=== PATIENT | female | born 1945 | race Caucasian/White ===

== ENCOUNTER 2017-12-14 14:22 | Observation (INO) | payer MEDICARE ==
[2017-12-14] MEDS ORDERED: NALOXONE 0.4 MG/ML 1 ML VIAL IV PRN ×2 (14:55→16:42)
[2017-12-14] MEDS ORDERED: ONDANSETRON 4 MG/2 ML VIAL IVP PRN (14:55)
--- NOTE | 2017-12-14 14:55 | ED ---
Dizziness HPI - General Stated Complaint: dizziness/weakness Time Seen by Provider: 12/14/17 14:26 - History of Present Illness Initial Comments: Patient presents with dizziness. She states nothing in particular makes her symptoms better or worse. She denies any fever, chills, chest pain. Normally she is able to walk. She has no difficulties walking. She has no weakness in her tremor days. However today she had the gradual onset of dizziness. She feels vertiginous. She feels lightheaded. She thinks she could pass out. She denies any shortness of breath. She has no palpitations. She has no pain or swelling in the arms or legs. Her symptoms are worse when she is up, attending to walk, to the point that she is unable to walk anymore. Review of Systems ROS Statement: Those systems with pertinent positive or pertinent negative responses have been documented in the HPI. ROS Other: All systems not noted in ROS Statement are negative. General Exam General appearance: alert, in no apparent distress Head exam: Present: atraumatic, normocephalic, normal inspection Eye exam: Present: normal appearance, PERRL, EOMI. Absent: scleral icterus, conjunctival injection, periorbital swelling ENT exam: Present: normal exam, mucous membranes moist Neck exam: Present: normal inspection. Absent: tenderness, meningismus, lymphadenopathy Respiratory exam: Present: normal lung sounds bilaterally. Absent: respiratory distress, wheezes, rales, rhonchi, stridor Cardiovascular Exam: Present: regular rate, normal rhythm, normal heart sounds. Absent: systolic murmur, diastolic murmur, rubs, gallop, clicks GI/Abdominal exam: Present: soft, normal bowel sounds. Absent: distended, tenderness, guarding, rebound, rigid Extremities exam: Present: normal inspection, full ROM, normal capillary refill. Absent: tenderness, pedal edema, joint swelling, calf tenderness Back exam: Present: normal inspection Neurological exam: Present: alert, oriented X3, CN II-XII intact, abnormal gait Psychiatric exam: Present: normal affect, normal mood Skin exam: Present: warm, dry, intact, normal color. Absent: rash Medical Decision Making - Medical Decision Making Patient presents with dizziness. She can't walk. CT of the head is negative. Laboratory studies are normal. I will place a consultation to neurology. She will be admitted to the hospital. Disposition Clinical Impression: Dizziness Disposition: ADMITTED IP TO THIS HOSP Condition: Fair Is patient prescribed a controlled substance at discharge?: No Referrals: Dina Adam DO [Primary Care Provider] - 1-2 days Time of Disposition: 14:55
[2017-12-14] MEDS ORDERED: ALPRAZolam 0.25 MG TAB PO PRN (16:40)
[2017-12-14] MEDS: SODIUM CHLORIDE 0.9% 1,000 ML IV SCH (17:06)
[2017-12-14] MEDS: ACETAMINOPHEN TAB 325 MG TAB PO PRN (17:07)
--- NOTE | 2017-12-14 17:11 | P.HPIM ---
History of Present Illness H&P Date: 12/14/17 Chief Complaint: Dizziness Patient is a 72-year-old female with known history of hypothyroidism, hypertension and anxiety who presented with very severe and significant dizziness and dysarthria this morning. Patient states she was out of her normal health yesterday and when she went to bed last night. When she woke up this morning was extremely dizzy and weak, stated she felt like the room was spinning forcing her to lay back down in bed and close her eyes which only minimally helped with the symptoms. Family found her laying on the ground on the carpet due to the dizziness, states that when she tried to talk to them she was having trouble getting words out. EMS was called and brought the patient to an outside ED; at some point the patient was given Decadron which been reports afterwards she "perked up". The patient was transferred to our ED for further evaluation which was unremarkable including a CT had which showed no acute pathology. Symptoms have since resolved. Patient is being admitted to the observation unit for further workup. Review of Systems CONSTITUTIONAL: No weight loss, fever, chills. Positive for weakness HEENT: Eyes: No visual loss, positive for rooms spinning. Ears, Nose, Throat : No hearing loss, sneezing, congestion, runny nose or sore throat. SKIN: No rash or itching. CARDIOVASCULAR: No chest pain, chest pressure or chest discomfort. No palpitations or edema. RESPIRATORY: No shortness of breath, cough or sputum. GASTROINTESTINAL: No anorexia, vomiting or diarrhea. No abdominal pain or blood. Positive for nausea GENITOURINARY: No burning on urination. No change in frequency. No change in stream. NEUROLOGICAL: + headache, dizziness. No syncope, paralysis, ataxia, numbness or tingling in the extremities. No change in bowel or bladder control. MUSCULOSKELETAL: No muscle, back pain, joint pain or stiffness. HEMATOLOGIC: No anemia, bleeding or bruising. PSYCHIATRIC: No history of depression. ENDOCRINOLOGIC: No reports of sweating, cold or heat intolerance. No polyuria or polydipsia. ALLERGIES: No history of asthma, hives, eczema or rhinitis. Past Medical History Past Medical History: GERD/Reflux, Hypertension, Thyroid Disorder History of Any Multi-Drug Resistant Organisms: None Reported Past Surgical History: Cholecystectomy, Orthopedic Surgery (Right ankle with hardware implantation and [facility] over 20 years ago), Tonsillectomy Additional Past Surgical History / Comment(s): D&C Past Psychological History: Anxiety, Depression Smoking Status: Never smoker Past Alcohol Use History: None Reported Past Drug Use History: None Reported - Past Family History Father Family Medical History: Coronary Artery Disease (CAD), Hypertension Medications and Allergies Home Medications Medication Instructions Recorded Confirmed Type ALPRAZolam [Xanax] 0.25 mg PO BID PRN 12/14/17 12/14/17 History Aspirin 81 mg PO DAILY 12/14/17 12/14/17 History Levothyroxine Sodium [Synthroid] 50 mcg PO DAILY 12/14/17 12/14/17 History Multivit with Calcium,Iron,Min 1 tab PO DAILY 12/14/17 12/14/17 History [Women's Multivitamin] Ranitidine HCl [Zantac] 150 mg PO BID 12/14/17 12/14/17 History Ultimate Preeti Probiotic 1 tab PO DAILY 12/14/17 12/14/17 History Vitamin B Complex 1 cap PO DAILY 12/14/17 12/14/17 History amLODIPine [Norvasc] 5 mg PO DAILY 12/14/17 12/14/17 History Allergies Allergy/AdvReac Type Severity Reaction Status Date / Time codeine AdvReac Nausea & Verified 12/14/17 15:27 Vomiting Physical Exam Vitals: Vital Signs Temp Pulse Resp BP Pulse Ox 12/14/17 16:36 98.8 F 77 16 136/66 98 12/14/17 15:04 97.7 F 85 20 150/70 98 Intake and Output 12/14/17 12/14/17 12/14/17 06:59 14:59 22:59 Other: Weight 76.204 kg General: A/O x 3, NAD, Lying in bed comfortably HEENT: EOMI, MMM, atraumatic normocephalic Neck: Supple. No JVD, trachea midline CVS: Regular rate and rhythm. + S1/S2, no murmurs/gallops/rubs Respiratory: Bilateral air entry noted. Clear to auscultation, no wheeze, no rhonchi Abdomen: Soft, nontender, nondistended. Bowel sounds audible Extremities: No lower extremity edema. No clubbing or cyanosis Skin: No rash or skin change noted Psych: Without hallucinations, abnormal affect, or abnormal behaviors during the examination Results Results: Outside ED lab work reviewed CT Scan - head: other (Outside CAT scan reviewed, no acute pathology) Assessment and Plan (1) TIA (transient ischemic attack) Current Visit: Yes Status: Acute Code(s): G45.9 - TRANSIENT CEREBRAL ISCHEMIC ATTACK, UNSPECIFIED SNOMED Code(s): 998813918 (2) Dizziness Current Visit: Yes Status: Acute Code(s): R42 - DIZZINESS AND GIDDINESS SNOMED Code(s): 628907704 Plan: Dizziness, lightheadedness, dysarthria concerning for TIA. Patient to be admitted to the observation unit on telemetry monitoring. Neuro checks ordered. Neurology was consulted while patient was still in the emergency department. Considering MRI for further imaging however patient does have some hardware implantation from right ankle repair done over 20 years ago. To discussed with neurology.
[2017-12-14] MEDS ORDERED: MECLIZINE 25 MG TAB PO STA (19:08)
[2017-12-14] MEDS: FAMOTIDINE 20 MG TAB PO SCH (20:37)
[2017-12-14] MEDS ORDERED: NON-FORMULARY DRUG (Ranitidine Hcl [Zantac] 150 MG) PO SCH (21:00)
--- NOTE | 2017-12-14 23:21 | CONS ---
CONSULTATION DATE OF CONSULTATION: 12/14/2017. CHIEF COMPLAINT: Dizziness. HISTORY OF PRESENT ILLNESS: The patient is a pleasant 52-year-old female, who is being evaluated by the Neurology Service per the request of Dr. Ray for dizziness. The patient states that she woke up this morning and noticed significant dizziness, which she described as a spinning sensation. She called her daughter and stated that she was not feeling well. When her daughter came over, she found her on the floor and was having difficulty moving due to the dizziness. The patient reports having tinnitus for several years and hearing loss as well. She is scheduled to see an ear nose and throat doctor next week. EMS was called and she was transferred to [facility] where a CT scan of the brain was done, which showed no acute findings. She was transferred to [facility] for further workup and management. At the time of my evaluation, she is still having vertigo, which is worsened when she tried to go to the bathroom earlier today. She is also complaining of a headache which she describes as a pressure pain that is mostly in the frontal and occipital region. According to the family, when she arrived to the emergency room at [facility], the patient was having difficulty speaking and she was having significant weakness, that the patient felt was generalized. The patient states that she knew what she wanted to say but the words were not coming out. She does take aspirin 81 mg daily at home. At the time of my evaluation, she rates her headache at 7/10 in intensity. She did receive Tylenol with minimal improvement. She currently denies any weakness or numbness. PAST MEDICAL HISTORY: Hypertension, gastroesophageal reflux disease, anxiety disorder, hypothyroidism. SOCIAL HISTORY: She denies any tobacco alcohol or drug use. FAMILY HISTORY: Noncontributory. HOME MEDICATIONS: Reviewed in the chart. ALLERGIES: Codeine. REVIEW OF SYSTEMS: CONSTITUTIONAL: Positive for fatigue. EYES: Negative. ENT: As mentioned above. CARDIOVASCULAR: Negative. RESPIRATORY: Negative. NEUROLOGICAL: As mentioned above. GASTROINTESTINAL: Positive for occasional heartburn. GENITOURINARY: Negative. DERMATOLOGICAL: Negative. ENDOCRINE: Positive for hypothyroidism. PSYCHIATRIC: Positive for anxiety disorder. MUSCULOSKELETAL: Positive for occasional joint pain. PHYSICAL EXAM: Vital signs show a temperature of 98.8, pulse 77, respirations 16, blood pressure 136/66. GENERAL APPEARANCE: The patient is a well-developed, elderly female, who appears to be in no acute distress. HEENT: Normocephalic, atraumatic. No facial asymmetry is seen. Tenderness to palpation is felt along bilateral greater occipital nerve region, right more than left. NECK: Supple with no masses felt. CARDIOVASCULAR: Regular rate and rhythm. ABDOMEN: Nontender, nondistended. EXTREMITIES: No edema or clubbing. NEUROLOGICAL EXAM: The patient is awake, alert, and oriented x3. Speech and language are normal. Strength is full in all four extremities. Sensory exam was normal to light touch in all four extremities. No tremors or seizure-like activity is seen. No facial asymmetry is seen on cranial nerve testing. IMPRESSION: 1. Dizziness/vertigo. 2. Generalized weakness, resolved. 3. Headache. 4. Occipital neuritis. 5. Tinnitus. 6. Possible transient ischemic attack. RECOMMENDATIONS: The patient continues to have vertigo. She does have chronic tinnitus and hearing loss. As mentioned above. Her current headache and transient episode of expressive aphasia which occurred at [facility] is concerning for a transient ischemic attack. For this reason, I will order an MRI of the brain along with an MRA of the brain and neck. I will also order a fasting lipid panel, EEG, and serum homocystine level. I will switch her aspirin to Plavix 75 mg daily. As for her headache, she does have evidence of occipital neuritis on my examination. I will give her a single dose of IV Solu-Medrol 500 mg. I will also give her another dose of Antivert 25 mg for her vertigo. Continue neuro checks. I will continue to follow with you. Further recommendations to follow. Thank you for allowing me to participate in the care of your patient. If you have any questions, please feel free to contact me. MMODL / IJN: [id number] /
[2017-12-15] MEDS: LEVOTHYROXINE 50 MCG TAB PO SCH (05:17)
[2017-12-15] MEDS: ACETAMINOPHEN TAB 325 MG TAB PO PRN ×2 (05:24→15:35)
[2017-12-15] MEDS: SODIUM CHLORIDE 0.9% 1,000 ML IV SCH (08:10)
[2017-12-15 08:51] LABS: Albumin 4.1 g/dL (3.5-5.0); Calcium 9.5 mg/dL (8.4-10.2); Potassium 4.6 mmol/L (3.5-5.1); Total Bilirubin 0.5 mg/dL (0.2-1.3); Total Protein 6.4 g/dL (6.3-8.2)
[2017-12-15] MEDS ORDERED: ASPIRIN 81 MG PO SCH (09:00)
[2017-12-15] MEDS: FAMOTIDINE 20 MG TAB PO SCH ×2 (09:07→21:02)
[2017-12-15] MEDS: amLODIPine 5 MG TAB PO SCH (09:07)
[2017-12-15] MEDS: ENOXAPARIN 40 MG/0.4 ML SYRINGE SQ SCH (09:07)
[2017-12-15] MEDS: CLOPIDOGREL 75 MG TAB PO SCH (09:07)
--- NOTE | 2017-12-15 09:27 | MR ---
EXAMINATION TYPE: MR brain wo con DATE OF EXAM: 12/15/2017 COMPARISON: NONE HISTORY: 72-year-old female Dizziness, headache, rule out CVA TECHNIQUE: Multiplanar, multisequence images of the brain and brainstem were acquired before without IV contrast. Diffusion weighted imaging is performed. FINDINGS: No evidence for acute infarction, hemorrhage, mass, mass effect, midline shift, herniation, effacemen t of basal cisterns, or extra-axial fluid collection. The ventricles and sulci are age-appropriate. Major intracranial flow voids are intact. T2/FLAIR weighted sequences show numerous foci of bright signal in the subcortical and deep white mat ter of both cerebral hemispheres with moderate overall burden. Some patchy signal changes are also no trey in the bilateral paramedian anna. Midline structures demonstrate normal morphology. The craniocervical junction is normal. The visualized sinuses are clear and the globes are intact. IMPRESSION: No acute intracranial abnormality seen. T2 bright white matter foci in both cerebral hemispheres and anna with moderate overall burden. This is nonspecific but most likely relates to changes of chronic small vessel ischemic disease.
--- NOTE | 2017-12-15 09:35 | MR ---
EXAMINATION TYPE: MR angio head/neck wo con DATE OF EXAM: 12/15/2017 COMPARISON: NONE HISTORY: 72-year-old female Dizziness, headache TECHNIQUE: High resolution 3-D time of flight images focusing on the [place] of [place] were performed without contrast.. 2-D and 3-D postprocessing imaging is performed. Additional 2-D and 3-D time-of-f light imaging of the carotid vasculature of the neck with 3-D reconstructions generated on a [employer] workstation. FINDINGS: Head: Tiny 2 mm conical protrusion at the origin of the right posterior communicating artery and tiny 1 mm similar conical protrusion on the left. Otherwise, no aneurysmal change seen. The anterior and hair assistant ior circulations are patent without significant stenosis or arterial occlusion. NECK: The proximal left vertebral artery is tortuous. Both vertebral arteries are codominant and appear pat ent throughout their course. The right common and internal carotid arteries are widely patent. The left common carotid artery is patent. There is some eccentric atherosclerotic change at the left carotid bulb causing a mild, estimated at less than 20% focal narrowing. IMPRESSION: 1. Head: Tiny 2 mm and 1 mm infundibula at the origin of the right and left posterior communicating a rteries, respectively. No significant stenosis, arterial occlusion, or otherwise any aneurysmal harris e seen. 2. Neck: Suggestion of some eccentric atherosclerotic change at the left carotid bulb causing a mild, less than 20% stenosis of the proximal left ICA. Otherwise, the carotid and vertebral vasculature of the neck are widely patent.
--- NOTE | 2017-12-15 12:25 | P.PN ---
Subjective Progress Note Date: 12/15/17 Principal diagnosis: Dizziness Patient feeling better today last dizziness. The weakness is also better her speech is much improved back to normal Objective - Vital Signs Vital signs: Vital Signs Temp 97.7 F 12/15/17 06:39 Pulse 72 12/15/17 08:00 Resp 16 12/15/17 08:00 BP 120/64 12/15/17 06:39 Pulse Ox 94 L 12/15/17 06:39 Intake & Output 12/14/17 12/15/17 12/15/17 18:59 06:59 18:59 Weight 76.204 kg Other: Voiding Method Toilet Toilet Toilet Bedside Commode Bedside Commode # Voids 1 2 - Exam gen:alert and oriented lungs:clear to auscultation heart:s1s2 abdomen:soft and depressible,non tender ext:no edema - Labs CBC & Chem 7: 12/15/17 07:30 Labs: Abnormal Lab Results - Last 24 Hours (Table) 12/15/17 Range/Units 07:30 BUN 21 H (7-17) mg/dL Glucose 189 H (74-99) mg/dL Cholesterol 214 H (<200) mg/dL LDL Cholesterol, Calc 133 H (0-99) mg/dL HDL Cholesterol 70 H (40-60) mg/dL Assessment and Plan (1) Dizziness Narrative/Plan: MRI negative EEG ordered Current Visit: Yes Status: Acute Code(s): R42 - DIZZINESS AND GIDDINESS SNOMED Code(s): 537775004 (2) Hypertension Narrative/Plan: Controlled Continue Norvasc Current Visit: Yes Status: Acute Code(s): I10 - ESSENTIAL (PRIMARY) HYPERTENSION SNOMED Code(s): 36454123 (3) Hypothyroid Narrative/Plan: Continue Synthroid Current Visit: Yes Status: Acute Code(s): E03.9 - HYPOTHYROIDISM, UNSPECIFIED SNOMED Code(s): 50794043 Plan: Await neurology input
--- NOTE | 2017-12-15 17:55 | EEG ---
ELECTROENCEPHALOGRAM REPORT DATE OF SERVICE: 12/15/2017. REASON FOR TESTING: Dizziness. DESCRIPTION OF THE PROCEDURE: This EEG was performed using a 21 channel digital electroencephalograph, following international 10-20 system. DESCRIPTION OF THE RECORDING: From the beginning of the tracing, and with patient's eyes closed, the background rhythm was mostly consisting of 9 Hz alpha frequency in the posterior occipital leads. No obvious asymmetry is seen. Photic stimulation was performed with a minimal driving response seen. No pathological waves were elicited. Hyperventilation was not performed. The patient remains awake throughout the tracing. Occasional movement artifacts are seen. No epileptiform discharges were seen. Her EKG lead showed a regular rate and rhythm. INTERPRETATION: This awake EEG can be considered within normal limits. There is no asymmetry seen. No epileptiform discharges were noticed. The absence of epileptiform discharges does not rule out the diagnosis of epilepsy, therefore clinical correlation is recommended. MMMALIKA / WILMAR: [id number] /
--- NOTE | 2017-12-15 20:35 | P.PN ---
Subjective Progress Note Date: 12/15/17 Principal diagnosis: TIA Neurology is following on a 52-year-old female for dizziness. Patient noted significant dizziness which she described as a spinning sensation. Patient called her daughter and stated she was not feeling well. Patient was found on floor having difficulty moving due to dizziness. Patient reported having tinnitus for several years and hearing loss as well. Patient is to follow up with ear nose and throat provider next week. EMS was called and patient was transported to [facility] and a CT of the brain was done which noted no acute findings. Patient was then transferred to [facility] for further workup and neurological evaluation. Patient expressed difficulty speaking during the occurrence with word finding difficulty and generalized weakness. Patient is noted to be on 81 mg aspirin at home daily. Patient did receive Tylenol with minimal improvement. Patient was changed to Plavix 75 mg daily by supervising physician/neurologist. Patient was given IV Solu-Medrol 500 mg. She was also given Antivert 25 mg for her vertigo. Lipid panel was ordered. EEG was taken and was normal. MRI/MRA head and neck noted minimal atherosclerotic changes. CT brain noted chronic small vessel ischemic changes. Patient was alert and oriented 3, resting in bed in no acute distress. Objective - Vital Signs Vital signs: Vital Signs Temp 97.0 F L 12/15/17 15:00 Pulse 80 12/15/17 16:00 Resp 18 12/15/17 16:00 BP 124/64 12/15/17 15:00 Pulse Ox 97 12/15/17 15:00 Intake & Output 12/15/17 12/15/17 12/16/17 06:59 18:59 06:59 Intake Total 460 Balance 460 Intake: Oral 460 Other: Voiding Method Toilet Toilet Bedside Commode Bedside Commode # Voids 2 3 - Exam General appearance: Alert & oriented x3, no apparent distress. Head: Atraumatic, normocephalic, normal inspection Eyes: Well appearance, PERRLA, EOMI. Absent scleral icterus, conjunctival injection, nystagmus, periorbital swelling. Ear, nose and throat: Normal exam, mucous membranes moist Neck: Normal inspection, absent tenderness, lymphadenopathy. Respiratory: No increased work of breathing Cardiovascular: Regular rate, rhythm GI/abdominal: nontender nondistended Extremities: 4 range of motion, normal capillary refill, no tenderness, pedal edema joint swelling, calf tenderness. Neurological: cranial nerves II through XII intact no lateralizing weakness no seizure activity noted on physical exam no pronator drift and no nystagmus. Strength is equal in all 4 extremities at 4+ out of 5 Sensation is equal in all 4 extremities to light touch. patient no longer demonstrates word finding difficulty and physical exam. patient does not appear to have any remaining neurological deficits. Psychological: Mood and affect appropriate for setting. - Labs CBC & Chem 7: 12/15/17 07:30 Labs: Abnormal Lab Results - Last 24 Hours (Table) 12/15/17 Range/Units 07:30 BUN 21 H (7-17) mg/dL Glucose 189 H (74-99) mg/dL Cholesterol 214 H (<200) mg/dL LDL Cholesterol, Calc 133 H (0-99) mg/dL HDL Cholesterol 70 H (40-60) mg/dL Assessment and Plan (1) Dizziness Current Visit: Yes Status: Acute Code(s): R42 - DIZZINESS AND GIDDINESS SNOMED Code(s): 873752613 (2) TIA (transient ischemic attack) Current Visit: Yes Status: Acute Code(s): G45.9 - TRANSIENT CEREBRAL ISCHEMIC ATTACK, UNSPECIFIED SNOMED Code(s): 578510587 Plan: 1. Dizziness Symptoms are consistent with vertigo and patient has responded with Antivert therapy. patient can be follow-up outpatient for further workup and testing related to vertigo and already is reportedly scheduled to see her nose and throat provider next week. 2. TIA Although the patient's symptoms were primarily dizziness, the patient did display some word finding difficulty/expressive aphasia which is more consistent with TIA. Patient's MRI/ MRA of the head and neck showed minimal atherosclerotic changes. MRI of the brain noted chronic small vessel ischemic disease. Continue Plavix 75 mg by mouth daily. Patient's lipid panel noted elevated total cholesterol at 214, elevated LDL at 133, elevated HDL at 70. Triglycerides were normal at 55. Given the patient's findings of chronic small vessel ischemic disease and noted abnormalities on lipid panel, patient will need Lipitor 40 mg by mouth daily at bedtime to be started at this time. Plavix and Lipitor to be continued in the outpatient setting. Status: Neurology will continue to follow and provide further updates as needed or warranted. I have discussed the plan of care with the physician prior to implementation and he agrees with the plan as implemented.
[2017-12-15] MEDS ORDERED: ATORVASTATIN 40 MG TAB PO SCH (21:00)
[2017-12-15 23:29] VITALS: RESP 16
[2017-12-16 05:51] VITALS: BP 130/70; PULSE 60; TEMP 96.9
[2017-12-16] MEDS: LEVOTHYROXINE 50 MCG TAB PO SCH (06:14)
--- NOTE | 2017-12-16 09:42 | P.DS ---
Providers Date of admission: 12/14/17 14:55 Expected date of discharge: 12/16/17 Attending physician: Malcolm Ray MD Consults: 12/14/17 14:56 Consult Physician Routine Consulting Provider: Sommer Prakash Consult Reason/Comments: dizziness Do you want consulting provider notified?: Yes Primary care physician: Dina Adam - Discharge Diagnosis(es) (1) Dizziness Current Visit: Yes Status: Acute (2) Hypertension Current Visit: Yes Status: Acute (3) Hypothyroid Current Visit: Yes Status: Acute Hospital Course: 72-year-old female that came in with symptoms of dizziness and dysarthria. Patient was admitted to [facility]. Symptoms improved the next day. Initial CT of the head was negative MRI of the brain was negative for acute stroke. It did show chronic microvascular disease. Evaluated by neurology they felt that patient's symptoms were secondary to a TIA. Patient will be discharged home on Plavix and Lipitor. Patient currently at baseline. gen:alert and oriented lungs:clear to auscultation heart:s1s2 abdomen:soft and depressible,non tender ext:no edema Condition at discharge stable Discharge time 32 minutes Patient Condition at Discharge: Stable Plan - Discharge Summary New Discharge Prescriptions: New Atorvastatin [Lipitor] 40 mg PO HS #30 tab Clopidogrel [Plavix] 75 mg PO DAILY #30 tab Continue ALPRAZolam [Xanax] 0.25 mg PO BID PRN PRN Reason: Anxiety Ultimate Preeti Probiotic 1 tab PO DAILY Multivit with Calcium,Iron,Min [Women's Multivitamin] 1 tab PO DAILY amLODIPine [Norvasc] 5 mg PO DAILY Vitamin B Complex 1 cap PO DAILY Ranitidine HCl [Zantac] 150 mg PO BID Levothyroxine Sodium [Synthroid] 50 mcg PO DAILY Discontinued Aspirin 81 mg PO DAILY Discharge Medication List ALPRAZolam [Xanax] 0.25 mg PO BID PRN 12/14/17 [History] Levothyroxine Sodium [Synthroid] 50 mcg PO DAILY 12/14/17 [History] Multivit with Calcium,Iron,Min [Women's Multivitamin] 1 tab PO DAILY 12/14/17 [ History] Ranitidine HCl [Zantac] 150 mg PO BID 12/14/17 [History] Ultimate Preeti Probiotic 1 tab PO DAILY 12/14/17 [History] Vitamin B Complex 1 cap PO DAILY 12/14/17 [History] amLODIPine [Norvasc] 5 mg PO DAILY 12/14/17 [History] Atorvastatin [Lipitor] 40 mg PO HS #30 tab 12/16/17 [Rx] Clopidogrel [Plavix] 75 mg PO DAILY #30 tab 12/16/17 [Rx] Follow up Appointment(s)/Referral(s): Dina Adam DO [Primary Care Provider] - 1-2 days Sommer Prakash MD [STAFF PHYSICIAN] - 1 Week
[2017-12-16] MEDS: FAMOTIDINE 20 MG TAB PO SCH (09:43)
[2017-12-16] MEDS: amLODIPine 5 MG TAB PO SCH (09:43)
[2017-12-16] MEDS: ENOXAPARIN 40 MG/0.4 ML SYRINGE SQ SCH (09:43)
[2017-12-16] MEDS: CLOPIDOGREL 75 MG TAB PO SCH (09:43)
--- NOTE | 2018-01-03 17:17 | CDI ---
Outpatient Documentation Clarification Form Date: 01-03-18 CDS/Stove Carriage Operator Name: JENNIFER MADISON Phone: If any questions, call Joanna Orozco Manager Talent at [phone] Patient Name: JEIMY WOOD Admit Date: 12-14-17 Discharge Date: 12-16-17 ATTENTION: The [facility] Coding Staff appreciate your assistance in clarifying documentation. Please respond to the clarification below the line at the bottom and electronically sign. The [facility] Coding staff will review the response and follow-up if needed. Please note: Queries are made part of the Legal Health Record. If you have any questions, please contact the Manager Talent. Dear Dr. GRAF, Please clarify the cause of the patient's symptoms if known below the line: -Dizziness due to suspected TIA -Dizziness due to TIA -Dizziness, cause unspecified thank you for your time, Jennifer Madison MTDD
== END 2017-12-16 11:30 | disposition home or self-care (01) ==
LOC: EC 14:22 → 4MS4W 14:55
PROVIDERS: ADMIT Internal Medicine; ATTEND Internal Medicine
DX: R42 Dizziness and giddiness (principal); I10 Essential (primary) hypertension; E03.9 Hypothyroidism, unspecified; R47.1 Dysarthria and anarthria; F41.9 Anxiety disorder, unspecified; R53.1 Weakness; K21.9 Gastro-esophageal reflux disease without esophagitis; Z90.49 Acquired absence of other specified parts of digestive tract; F32.9 Major depressive disorder, single episode, unspecified; Z82.49 Family history of ischemic heart disease and other diseases of the circulatory system; Z79.82 Long term (current) use of aspirin; Z79.890 Hormone replacement therapy; Z79.899 Other long term (current) drug therapy; Z88.5 Allergy status to narcotic agent; H93.19 Tinnitus, unspecified ear; H91.90 Unspecified hearing loss, unspecified ear; M79.2 Neuralgia and neuritis, unspecified; R51 Headache; R47.01 Aphasia; E78.5 Hyperlipidemia, unspecified
CPT/HCPCS: 99285 ×2; 96365; 96372 ×2; 95816; 80061; 80053; 84484 ×2; 83090; 70544; 70547; 70551; G0378 ×3; J2930; J1650 ×2

== ENCOUNTER → 2020-01-17 | Outpatient (CLI) | payer MEDICARE | END | disposition home or self-care (01) | LOC: LABWHC1 08:58 | PROVIDERS: ATTEND Ophthalmology | DX: Z03.818 Encounter for observation for suspected exposure to other biological agents ruled out (principal) | CPT/HCPCS: 87635 ==